=== PATIENT | male | born 1995 | race American Indian/Alaskan Native ===

== ENCOUNTER 2021-05-15 03:43 | Observation (INO) | payer SELFPAY ==
[2021-05-15] MEDS ORDERED: dexAMETHasone 20 MG/5 ML VIAL IV ONE (04:27)
[2021-05-15] MEDS ORDERED: cefTRIAXone/NS 1 GM/50 ML 1 GM/50 ML BAG IV ONE (04:27)
[2021-05-15] MEDS ORDERED: AZITHROMYCIN/NS 500 MG/250 ML 500 MG/250 ML BAG IV ONE (04:27)
[2021-05-15] MEDS ORDERED: IPRATROPIUM/ALBUTEROL SULFATE 3 ML AMPUL.NEB IH ONE (04:28)
--- NOTE | 2021-05-15 04:31 | Emergency Department Report ---
ED Fever HPI - General Chief Complaint: Dyspnea/Respdistress Stated Complaint: KARUNA, COVID + PUI?: Yes Time Seen by Provider: 05/15/21 04:16 Source: patient Exam Limitations: other (patient will not cooperate with history taking) - History of Present Illness Initial Comments: CC: "I can't breathe." HPI: This is a 25 yo male with hx of asthma who presents with fever and shortness of breath. +COVID test 3 days ago. He has mild chest tightness. Patient would not cooperate with history otherwise. Timing/Duration: other (3 days) Fever Severity/Quality: greater than 102 F Associated Symptoms: chest pain, cough ED Review of Systems ROS: Stated complaint: KARUNA, COVID + Other details as noted in HPI Comment: Unobtainable due to pts medical conditions (lack of patient cooperation) ED Past Medical Hx - Past Medical History Previous Medical History?: Yes Hx Asthma: Yes - Surgical History Past Surgical History?: No - Social History Smoking Status: Never Smoker Substance Use Type: None ED Physical Exam - General Limitations: No Limitations General appearance: alert, other (mild work of breathing, 35 breaths/min) - Head Head exam: Present: atraumatic, normocephalic - Eye Eye exam: Present: normal appearance - ENT ENT exam: Present: mucous membranes moist - Neck Neck exam: Present: normal inspection, full ROM. Absent: tenderness, meningismus - Respiratory Respiratory exam: Present: decreased breath sounds, other (Tachypnea). Absent: wheezes, rales, rhonchi - Cardiovascular Cardiovascular Exam: Present: normal rhythm, tachycardia, normal heart sounds. Absent: systolic murmur, diastolic murmur, rubs, gallop - GI/Abdominal GI/Abdominal exam: Present: soft, normal bowel sounds. Absent: distended, tenderness, guarding, rebound - Rectal Rectal exam: Present: deferred - Extremities Exam Extremities exam: Present: normal inspection - Neurological Exam Neurological exam: Present: alert, oriented X3 - Psychiatric Psychiatric exam: Present: agitated, anxious - Skin Skin exam: Present: warm, dry, intact, normal color. Absent: rash ED Course Vital Signs 05/15/21 03:54 Temperature 102.3 F H Pulse Rate 110 H Respiratory 26 H Rate Blood Pressure 120/70 O2 Sat by Pulse 97 Oximetry ED Medical Decision Making - Lab Data Result diagrams: 05/15/21 04:41 05/15/21 04:41 - Radiology Data Radiology results: report reviewed Patient Name: GUY SOTO Gender: Male Date of : 1995 Referring Provider: GAYATHRI VEE Organization: [facility] Accession Number: [id number] Requested Date: May 15, 2021 04:26 Report Status: Final Requested Procedure: 1 Procedure Description: XR chest 1V ap Modality: XR Findings Reporting MD: Richie Amaya Dictation Time: May 15, 2021 04:20 Transfer And Line Up Worker: Not available Gluing Crew Leader Date: CHEST 1 VIEW INDICATION: fever shortness of breath COVID+. COMPARISON: None. FINDINGS: Support devices: None. Heart: Normal. Lungs/Pleura: There is focal airspace disease in the right lower lobe. Left lung is clear. No pleural abnormality. IMPRESSION: 1. Right lower lobe pneumonia. Signer Name: Richie Amaya MD Signed: 05/15/2021 4:20 AM Workstation Name: [id number] - Medical Decision Making Community-acquired pneumonia presumably due to known COVID-19. Potential bacterial pneumonia addressed with respiratory azithromycin. Patient received IV Decadron in the emergency department for supportive therapy. Patient also received duo nebulizer therapy. Patient has significant work of breathing at rest necessitating hospitalization. Patient is admitted to hospital service in fair condition. D-dimer and ferritin Covid 19 markers mildly elevated. Critical care attestation.: If time is entered above; I have spent that time in minutes in the direct care of this critically ill patient, excluding procedure time. ED Disposition Clinical Impression: Community acquired pneumonia, COVID-19, History of asthma Disposition: ADMITTED INPATIENT Is pt being admited?: Yes Does the pt Need Aspirin: No Condition: Fair Instructions: Bacterial Pneumonia (ED)
[2021-05-15 05:24] LABS: Hematocrit 43.8 % (35.5-45.6); Hemoglobin 14.7 gm/dl (11.8-15.2); Mean Corpuscular HGB Conc 34 % (32-34); Mean Corpuscular Volume 87 fl (84-94); Platelet Count 171 K/mm3 (140-440); Red Blood Count 5.03 M/mm3 (3.65-5.03); Red Cell Distribution Width 11.8 % (13.2-15.2)
--- NOTE | 2021-05-15 05:24 | XRay Report ---
CHEST 1 VIEW INDICATION: fever shortness of breath COVID+. COMPARISON: None. FINDINGS: Support devices: None. Heart: Normal. Lungs/Pleura: There is focal airspace disease in the right lower lobe. Left lung is clear. No pleural abnormality. IMPRESSION: 1. Right lower lobe pneumonia. Signer Name: Richie Amaya MD Signed: 05/15/2021 5:20 AM Workstation Name: [id number]
[2021-05-15 05:35] LABS: Alanine Aminotransferase 16 units/L (7-56); BUN/Creatinine Ratio 15; Blood Urea Nitrogen 12 mg/dL (9-20); Calcium 9.1 mg/dL (8.4-10.2); Hemolysis Index 3
[2021-05-15 06:43] LABS: Total Cells Counted 100
[2021-05-15 06:44] LABS: Band Neutrophils # (Manual) 0.2 K/mm3; Platelet Estimate Consistent w Auto
--- NOTE | 2021-05-15 09:18 | History and Physical Report ---
History of Present Illness Date of examination: 05/15/21 Date of admission: 05/15/21 05:53 Chief complaint: SOB History of present illness: This is a 25 yo male with hx of asthma who presents with fever and shortness of breath. +COVID test 3 days ago. He has mild chest tightness. Patient would not cooperate with history otherwise. Medications and Allergies Allergies Allergy/AdvReac Type Severity Reaction Status Date / Time No Known Allergies Allergy Verified 05/15/21 03:53 Exam - Constitutional Vitals: Temp Pulse Resp BP Pulse Ox 102.3 F H 104 H 17 141/90 98 05/15/21 03:54 05/15/21 06:45 05/15/21 06:45 05/15/21 04:15 05/15/21 06:45 Results - Labs CBC & Chem 7: 05/15/21 04:41 05/15/21 04:41 Labs: Abnormal lab results 05/15/21 05/15/21 05/15/21 Range/Units 04:41 04:41 04:41 RDW (13.2-15.2) % Seg Neuts % (Manual) (40.0-70.0) % Lymphocytes % (Manual) (13.4-35.0) % Lymphocytes # (Manual) (1.2-5.4) K/mm3 D-Dimer 611.59 H (0-234) ng/mlDDU Sodium 132 L (137-145) mmol/L Chloride 95.9 L (98-107) mmol/L Carbon Dioxide 20 L (22-30) mmol/L Glucose 111 H (75-100) mg/dL Ferritin 871.8 H (30.0-300.0) ng/mL Lactate Dehydrogenase 235 H (91-180) units/L 05/15/21 Range/Units 04:41 RDW 11.8 L (13.2-15.2) % Seg Neuts % (Manual) 79.0 H (40.0-70.0) % Lymphocytes % (Manual) 12.0 L (13.4-35.0) % Lymphocytes # (Manual) 0.9 L (1.2-5.4) K/mm3 D-Dimer (0-234) ng/mlDDU Sodium (137-145) mmol/L Chloride (98-107) mmol/L Carbon Dioxide (22-30) mmol/L Glucose (75-100) mg/dL Ferritin (30.0-300.0) ng/mL Lactate Dehydrogenase (91-180) units/L Assessment and Plan --Acute hypoxic respiratory failure --COVID-19 pneumonia with sepsis
[2021-05-15] MEDS ORDERED: FAMOTIDINE 10 MG TAB PO SCH (10:00)
[2021-05-15] MEDS ORDERED: cefTRIAXone/NS 1 GM/50 ML 1 GM/50 ML BAG IV SCH ×2 (10:00→11:00)
[2021-05-15] MEDS ORDERED: ALBUTEROL 8.5 GM MDI INHALATION IH PRN (10:00)
[2021-05-15] MEDS ORDERED: hydrALAZINE 20 MG/1 ML INJ IV PRN (10:00)
[2021-05-15] MEDS ORDERED: ACETAMINOPHEN 325 MG TAB PO PRN (10:00)
[2021-05-15 11:57] LABS: C-Reactive Protein 1.2 mg/dL (0.00-1.30)
[2021-05-15] MEDS ORDERED: HEPARIN 5,000 UNIT/1 ML VIAL SUB-Q SCH (14:00)
--- NOTE | 2021-05-15 14:19 | Consultation ---
History of Present Illness - Reason for Consult Consult date: 05/15/21 COVID Requesting physician: MARLENY RANDALL - History of Present Illness The patient is a 25-year-old male with asthma, admitted with fever and shortness of breath, tested positive for COVID-19 3 days prior. Was having mild chest tightness. Fever of 102.3 F. Please not hypoxic D-dimer 611, normal WBC, platelets 171, ferritin 871, LDH 235, CRP 1.3. Review of Systems: reviewed in the chart, unable to obtain, minimize risk of transmission Medications and Allergies Allergies Allergy/AdvReac Type Severity Reaction Status Date / Time No Known Allergies Allergy Verified 05/15/21 03:53 Active Meds: Active Medications Acetaminophen (Acetaminophen 325 Mg Tab) 650 mg PO Q4H PRN PRN Reason: Pain MILD(1-3)/Fever >100.5/MURRY Albuterol (Albuterol 8.5 Gm Mdi Inhalation) 2 puff IH Q4HRT PRN PRN Reason: Shortness Of Breath Dexamethasone (Dexamethasone 2 Mg Tab) 6 mg PO Q24HR PIPE Famotidine (Famotidine 10 Mg Tab) 10 mg PO BID PIPE Heparin Sodium (Porcine) (Heparin 5,000 Unit/1 Ml Vial) 5,000 unit SUB-Q Q8HR PIPE Hydralazine HCl (Hydralazine 20 Mg/1 Ml Inj) 5 mg IV Q30MIN PRN PRN Reason: Hypertension Azithromycin (Zithromax/Ns) 500 mg in 250 mls @ 250 mls/hr IV Q24H PIPE Ceftriaxone Sodium (Rocephin/Ns 2 Gm/100 Ml) 2 gm in 100 mls @ 200 mls/hr IV Q24H PIPE Ceftriaxone Sodium (Rocephin/Ns 1 Gm/50 Ml) 1 gm in 50 mls @ 100 mls/hr IV ONCE@1100 PIPE Stop: 05/15/21 15:00 Physical Examination - Physical Exam Narrative exam: Physical Exam (reviewed in chart to minimize risk of transmission) Constitutional: deferred Head, Ears, Nose: deferred Eyes: deferred Neck: deferred Oral: deferred Cardiovascular: deferred Respiratory: deferred GI: deferred Musculoskeletal: deferred Skin: deferred Hem/Lymphatic: deferred Psych: deferred Neurological: deferred - Constitutional Vitals: Vital Signs Temp Pulse Resp BP Pulse Ox 102.3 F H 100 H 20 128/82 98 05/15/21 03:54 05/15/21 12:36 05/15/21 12:36 05/15/21 12:36 05/15/21 12:36 Temperature -Last 24 Hours Temperature 102.3 F Results - Labs CBC & Chem 7: 05/15/21 04:41 05/15/21 04:41 Labs: Abnormal lab results 05/15/21 05/15/21 05/15/21 Range/Units 04:41 04:41 04:41 RDW (13.2-15.2) % Seg Neuts % (Manual) (40.0-70.0) % Lymphocytes % (Manual) (13.4-35.0) % Lymphocytes # (Manual) (1.2-5.4) K/mm3 D-Dimer 611.59 H (0-234) ng/mlDDU Sodium 132 L (137-145) mmol/L Chloride 95.9 L (98-107) mmol/L Carbon Dioxide 20 L (22-30) mmol/L Glucose 111 H (75-100) mg/dL Ferritin 871.8 H (30.0-300.0) ng/mL Lactate Dehydrogenase 235 H (91-180) units/L 05/15/21 05/15/21 05/15/21 Range/Units 04:41 09:51 09:51 RDW 11.8 L (13.2-15.2) % Seg Neuts % (Manual) 79.0 H (40.0-70.0) % Lymphocytes % (Manual) 12.0 L (13.4-35.0) % Lymphocytes # (Manual) 0.9 L (1.2-5.4) K/mm3 D-Dimer (0-234) ng/mlDDU Sodium (137-145) mmol/L Chloride (98-107) mmol/L Carbon Dioxide (22-30) mmol/L Glucose (75-100) mg/dL Ferritin 872.1 H (30.0-300.0) ng/mL Lactate Dehydrogenase 261 H (91-180) units/L - Imaging and Cardiology Chest x-ray: report reviewed, image reviewed (no significant pneumonia seen ) Assessment and Plan Cultures: SARS CoV2 PCR: Positive as outpatient A/P: 25/M with h/o asthma with: #COVID-19 infection: Chest x-ray without any evidence of significant pneumonia, no hypoxia on ambulation. Recs: -Patient is on room air, no indication for remdesivir or steroids from COVID-19 -Defer steroids for possible asthma if any exacerbation to IMS -if procalcitonin is low, abx not needed Martha Sarmiento MD, FACP [facility] ([facility] O: [phone] F: [phone]
--- NOTE | 2021-05-15 14:27 | Discharge Summary ---
Providers - Providers Date of Admission: 05/15/21 05:53 Date of discharge: 05/15/21 Attending physician: MARLENY RANDALL 05/15/21 09:20 Consult to Physician [CONS] Routine Comment: Consulting Provider: FLORESITA NDIAYE Physician Instructions: Reason For Exam: covid 19 PNA Primary care physician: BLOCK CHOPPER HAND Hospitalization Condition: Fair Disposition: 01 HOME / SELF CARE / HOMELESS Final Discharge Diagnosis (Prints w/discharge instructions): --COVID 19 positive. --h/o asthma Time spent for discharge: 34 minutes Core Measure Documentation - Palliative Care Palliative Care/ Comfort Measures: Not Applicable - Core Measures Any of the following diagnoses?: history only Exam - Physical Exam Narrative exam: Limited physical exam due to COVID-19 pandemic to minimize transmission of the disease and to preserve PPE. Vital reviewed and stable. GENERAL: well-developed well-nourished lying on bed appeared to be in no discomfort. HEENT: Normocephalic. Atraumatic. NECK: Supple. CHEST/LUNGS: breathing nonlabored. HEART/CARDIOVASCULAR: Heart rate stable on telemetry ABDOMEN: Visibly not distended SKIN: There is no rash NEURO: No focal motor deficit. Follows command. MUSCULOSKELETAL: No joint effusion EXTRIMITY: No swelling, no cyanosis or clubbing. PSYCH: Cooperative. - Constitutional Vitals: Temp Pulse Resp BP Pulse Ox 102.3 F H 100 H 20 128/82 98 05/15/21 03:54 05/15/21 12:36 05/15/21 12:36 05/15/21 12:36 05/15/21 12:36 Plan Activity: advance as tolerated Weight Bearing Status: Weight Bear as Tolerated Diet: low fat, low salt Prescriptions: dexAMETHasone [Decadron] 6 mg PO Q24HR #9 tablet Albuterol Mdi (or & Nicu Only) [ProAir HFA Inhaler] 2 puff IH QID PRN #8.5 gram PRN Reason: Shortness Of Breath Ascorbic Acid [Vitamin C] 1,000 mg PO BID #14 tablet Cholecalciferol (Vitamin D3) [Vitamin D3] 5,000 unit PO DAILY #7 tablet Zinc Sulfate 220 mg PO BID #14 capsule
[2021-05-15] MEDS ORDERED: CHOLECALCIFEROL (VIT D3) 5,000 UNIT TAB PO SCH (15:00)
[2021-05-15] MEDS ORDERED: ASCORBIC ACID 500 MG TAB PO SCH (15:00)
[2021-05-15] MEDS ORDERED: ZINC SULFATE 220 MG CAP PO SCH (15:00)
[2021-05-15 16:27] VITALS: BP 126/81
[2021-05-16] MEDS ORDERED: AZITHROMYCIN/NS 500 MG/250 ML 500 MG/250 ML BAG IV SCH (08:00)
[2021-05-16] MEDS ORDERED: cefTRIAXone/NS 2 GM/100 ML 2 GM/100 ML BAG IV SCH (09:00)
[2021-05-16] MEDS ORDERED: DEXAMETHASONE 2 MG TAB PO SCH (10:00)
== END 2021-05-15 16:21 | disposition home or self-care (01) ==
LOC: ED 03:43 → 3A 05:53
PROVIDERS: ADMIT Internal Medicine Geriatric Medicine; ATTEND Internal Medicine
DX: U07.1 COVID-19 (principal); A41.9 Sepsis, unspecified organism; J96.01 Acute respiratory failure with hypoxia; J12.82 Pneumonia due to coronavirus disease 2019; J45.909 Unspecified asthma, uncomplicated; Z87.09 Personal history of other diseases of the respiratory system
CPT/HCPCS: 36415; 71045; 80053; 82140; 82728; 83615; 84145; 85025; 85379; 86140; 87040; 96365; 96368; 96375; 99284; G0378; J0456; J0696; J1100; U0003; 85007